=== PATIENT | female | born 1995 | race American Indian/Alaskan Native ===

== ENCOUNTER 2017-04-29 12:17 | Emergency (ER) | payer OTHER ==
[~2017-04-29] VITALS: Ht 160 cm; Wt 78.9 kg
[~2017-04-29 12:17] MED LIST: ALBU90OI INH; AMOX875 PO; ANTOXYBENA LEFTEAR; Amoxicillin500 MG PO; BIRTH CONTROL; CEPH500 PO; CODGUAEL PO; Cipro500 MG PO; Esgic Tablet1 EACH PO; Flonase 0.05% N16 GM; Keflex500 MG PO; PROMETHAZINE-D473 ML PO; Percocet 5-3251 EACH PO; Prednisone20 MG PO; Pyridium200 MG PO; RXTRAM50 PO; Sudogest30 MG PO; TRAM50 PO; Verotin-Gr Cap1 EACH; Zofran Odt4 MG SL; Zofran4 MG PO
[2017-04-29 13:28] LABS: BASOPHILS ABSOLUTE AUTO 0.02 K/mm3 (0.00-0.23); BASOPHILS PERCENT AUTO 0 % (0-2); EOSINOPHILS ABSOLUTE AUTO 0.21 K/mm3 (0.00-0.68); EOSINOPHILS PERCENT AUTO 2 % (0-6); Hematocrit 38.4 % (33.0-51.0); Hemoglobin 12.7 g/dL (11.5-16.0); IMMATURE GRAN ABSOLUTE AUTO 0.02 K/mm3 (0.00-0.10); IMMATURE GRAN PERCENT AUTO 0 % (0-1); LYMPHOCYTES PERCENT AUTO 22 % (21-46); MONOCYTES ABSOLUTE AUTO 0.74 K/mm3 (0.16-1.47); MONOCYTES PERCENT AUTO 8 % (4-13); Mean Corpuscular HGB 27.9 pg (26.0-34.0); Mean Corpuscular HGB Conc 33.1 g/dL (31.5-36.5); Mean Corpuscular Volume 84 fL (80-100); Mean Platelet Volume 9.6 fL (9.1-12.4); NEUTROPHILS ABSOLUTE AUTO 6.56 K/mm3 (1.96-9.15); NEUTROPHILS PERCENT AUTO 68 % (41-73); Platelet Count 308 K/mm3 (150-400); RDW Coefficient Variation 13.7 % (11.7-14.2); RDW Standard Deviation 42.5 fL (35.1-46.3); Red Blood Cell Count 4.56 M/mm3 (3.80-5.20); White Blood Cell Count 9.65 K/mm3 (4.00-11.30)
[2017-04-29 14:43] LABS: Alanine Aminotransfer (ALT/SGP 26 U/L (12-78); Albumin, Blood 3.2 g/dL (3.4-5.0); Albumin/Globulin Ratio 0.9 (0.8-1.8); Alk Phos 63 U/L (50-136); Anion Gap 8 mmol/L (6-16); Aspartate Aminotrans (AST/SGOT 16 U/L (12-37); Bilirubin, Total 0.2 mg/dL (0.1-1.0); Blood Urea Nitrogen 7 mg/dL (8-24); Bun/Creatinine Ratio 16.2 (12.0-20.0); CO2, Blood 21 mmol/L (21-32); Calcium, Blood 8.5 mg/dL (8.5-10.1); Chloride, Blood 109 mmol/L (98-108); Creatinine, Blood 0.43 mg/dL (0.40-1.00); Globulin, Blood 3.6 g/dL (2.2-4.0); Glomerular Filtration Rate >60 (60-); Glucose, Blood 99 mg/dL (70-99); Potassium, Blood 3.8 mmol/L (3.5-5.5); Sodium, Blood 138 mmol/L (136-145); Total Protein, Blood 6.8 g/dL (6.4-8.2)
[2017-04-29 14:56] LABS: Beta HCG, Quantitative, Serum 47944 mIU/mL (0-3)
== END 2017-04-29 15:55 | disposition home or self-care (01) ==
LOC: ER 12:17
PROVIDERS: Emergency Medicine
DX: O99.89 Other specified diseases and conditions complicating pregnancy, childbirth and the puerperium (principal); R10.30 Lower abdominal pain, unspecified; O99.511 Diseases of the respiratory system complicating pregnancy, first trimester; J45.909 Unspecified asthma, uncomplicated; O21.9 Vomiting of pregnancy, unspecified; O99.331 Smoking (tobacco) complicating pregnancy, first trimester; F17.210 Nicotine dependence, cigarettes, uncomplicated; Z3A.11 11 weeks gestation of pregnancy
CPT/HCPCS: 36415; 76801; 76817; 80053; 81000; 84702; 85025; 86900; 86901; 96360; 96361; 99284; J7030

== ENCOUNTER → 2021-01-10 | Outpatient (CLI) | payer OTHER | END | disposition home or self-care (01) | LOC: LAB SHORT 15:40 | PROVIDERS: Obstetrics & Gynecology | DX: O30.009 Twin pregnancy, unspecified number of placenta and unspecified number of amniotic sacs, unspecified trimester (principal) | CPT/HCPCS: G0123 ==

== ENCOUNTER 2021-01-18 11:27 | Emergency (ER) | payer OTHER ==
[~2021-01-18] VITALS: Ht 160 cm; Wt 88.5 kg
[2021-01-18 12:26] LABS: Source, Urine Clean Catch
[2021-01-18 12:29] LABS: Appearance, Urine Clear (Clear); Bilirubin, Urine Neg (Neg); Blood, Urine Neg (Neg); Color, Urine Yellow (P-Yellow); Glucose Qualitative, Urine Neg (Neg); Ketones, Urine Neg (Neg); Leukocyte Esterase, Urine 1+ (Neg); Nitrite, Urine Neg (Neg); Protein, Urine 1+ (Neg); Specific Gravity, Urine 1.015 (1.003-1.022); Urobilinogen, Urine NORM (Normal)
[2021-01-18 12:53] LABS: Bacteria Mod /hpf; Red Blood Cells, Urine 0-2 /hpf (0-2); Squamous Epithelial Cells Many /hpf (Few); White Blood Cells, Urine 0-2 /hpf (0-5)
[2021-01-18] MEDS ORDERED: Phenergan25 M1 PO (13:13)
== END 2021-01-18 14:24 | disposition home or self-care (01) ==
LOC: ER 11:27
PROVIDERS: Physician Assistant
DX: O99.891 Other specified diseases and conditions complicating pregnancy (principal); R10.9 Unspecified abdominal pain; M54.50 Low back pain, unspecified; O99.332 Smoking (tobacco) complicating pregnancy, second trimester; F17.210 Nicotine dependence, cigarettes, uncomplicated; Z3A.22 22 weeks gestation of pregnancy; W19.XXXA Unspecified fall, initial encounter
CPT/HCPCS: 76815; 81001; 87086; 99284-25

== ENCOUNTER 2021-01-26 05:35 | Emergency (ER) | payer OTHER ==
[~2021-01-26] VITALS: Ht 160 cm; Wt 90.7 kg
[~2021-01-26 05:35] MED LIST changes: +Phenergan25 M1 PO
[2021-01-26] MEDS ORDERED: Amoxicillin500 MG PO (06:36)
[2021-01-26] MEDS ORDERED: Roxicodone5 MG PO (06:36)
== END 2021-01-26 06:53 | disposition home or self-care (01) ==
LOC: ER 05:35
DX: K04.7 Periapical abscess without sinus (principal); K02.9 Dental caries, unspecified; F17.210 Nicotine dependence, cigarettes, uncomplicated; Z88.5 Allergy status to narcotic agent
CPT/HCPCS: 99282; A9270

== ENCOUNTER → 2021-02-24 | Outpatient (CLI) | payer OTHER ==
[~2021-02-24] MED LIST changes: +Roxicodone5 MG PO
[2021-02-24 15:45] LABS: BASOPHILS ABSOLUTE AUTO 0.04 K/mm3 (0.00-0.23); BASOPHILS PERCENT AUTO 0 % (0-2); EOSINOPHILS ABSOLUTE AUTO 0.54 K/mm3 (0.00-0.68); EOSINOPHILS PERCENT AUTO 4 % (0-6); Hematocrit 31.6 % (33.0-51.0); Hemoglobin 10.1 g/dL (11.5-16.0); IMMATURE GRAN ABSOLUTE AUTO 0.07 K/mm3 (0.00-0.10); IMMATURE GRAN PERCENT AUTO 1 % (0-1); LYMPHOCYTES ABSOLUTE AUTO 1.82 K/mm3 (0.84-5.20); LYMPHOCYTES PERCENT AUTO 14 % (21-46); MONOCYTES ABSOLUTE AUTO 0.96 K/mm3 (0.16-1.47); MONOCYTES PERCENT AUTO 8 % (4-13); Mean Corpuscular HGB 27.7 pg (26.0-34.0); Mean Corpuscular Volume 87 fL (80-100); NEUTROPHILS ABSOLUTE AUTO 9.34 K/mm3 (1.96-9.15); NEUTROPHILS PERCENT AUTO 73 % (41-73); Platelet Count 367 K/mm3 (150-400); RDW Coefficient Variation 14.5 % (11.7-14.2); RDW Standard Deviation 45.6 fL (35.1-46.3); Red Blood Cell Count 3.65 M/mm3 (3.80-5.20); White Blood Cell Count 12.77 K/mm3 (4.00-11.30)
[2021-02-25 10:15] LABS: Candida species (DNA Probe) Negative (NEGATIVE); G. vaginalis (DNA Probe) Positive (NEGATIVE); T. vaginalis (DNA Probe) Negative (NEGATIVE)
== END | disposition home or self-care (01) ==
LOC: LAB 09:54 → LAB SHORT 09:54
PROVIDERS: Obstetrics & Gynecology
DX: O23.592 Infection of other part of genital tract in pregnancy, second trimester (principal)
CPT/HCPCS: 82950; 85025; 87480; 87510; 87660

== ENCOUNTER 2021-03-09 20:24 | Emergency (ER) | payer OTHER ==
[~2021-03-09] VITALS: Ht 160 cm; Wt 90.7 kg
[2021-03-09] MEDS ORDERED: PRENATAL TABLE1 EAC2 PO (20:41)
[2021-03-09] MEDS ORDERED: Amoxicillin500 MG PO (21:05)
== END 2021-03-09 21:21 | disposition home or self-care (01) ==
LOC: ER 20:24
DX: O99.613 Diseases of the digestive system complicating pregnancy, third trimester (principal); K03.81 Cracked tooth; K04.7 Periapical abscess without sinus; Z88.5 Allergy status to narcotic agent; Z3A.32 32 weeks gestation of pregnancy
CPT/HCPCS: A9270

== ENCOUNTER 2021-05-03 15:08 | Inpatient (IN) | payer OTHER ==
[~2021-05-03] VITALS: Ht 160 cm; Wt 97.7 kg
[~2021-05-03 15:08] MED LIST changes: +PRENATAL TABLE1 EAC2 PO
[2021-05-03 23:31] LABS: Influenza A, PCR NEGATIVE (NEGATIVE); Influenza B, PCR NEGATIVE (NEGATIVE); Resp Syncytial Virus, PCR NEGATIVE (NEGATIVE); SARS-Cov-2 (COVID-19) PCR, MMC NEGATIVE (NEGATIVE)
--- NOTE | 2021-05-04 09:38 | NUR ---
05/04/21 0938 Nina Gallego REPEAT SECTION 2 VIABLE FEMALES BORN. A BORN AT 0923 AND B BORN AT 0925. CORD BLOOD FOR BABY A WAS GIVEN TO DAISY MYERS AND B GIVEN TO Jo BECK RN. CORD GASES COLLECTED AND GIVEN TO SNEHAL CLARK ON ICE. A WIEGHED 5-5 AND B WEIGHTED 6-1.
[2021-05-04 09:50] LABS: PCO2 Cord - Arterial 52.2 mmHg (40-50); pH Cord - Arterial 7.32 (7.28-7.35)
[2021-05-04 09:53] LABS: PCO2 Cord - Venous 48.9 mmHg (40-50); pH Umbilical Cord - Venous 7.35 (7.26-7.35)
[2021-05-04 09:57] LABS: PCO2 Cord - Arterial 55.9 mmHg (40-50); PO2 Cord - Arterial < 14 mmHg (16-20)
[2021-05-04 10:00] LABS: PCO2 Cord - Venous 41.7 mmHg (40-50); PO2 Cord - Venous 28.5 mmHg (28-32); pH Umbilical Cord - Venous 7.38 (7.26-7.35)
[2021-05-04 10:10] LABS: PO2 Cord - Arterial < 14 mmHg (16-20)
[2021-05-04 10:12] LABS: PO2 Cord - Venous < 14 mmHg (28-32)
--- NOTE | 2021-05-04 12:00 | NUR ---
PT REFUSING FUNDAL MASSAGE AT THIS TIME, NAS CARE DONE AND SCANT BLEEDING NOTED. SOME SHADOWING ON MEDIPORE DRESSING PRESENT, NO CLOTS. PT DECLINES FEELING ANY LEAKING OR CLOTS COME OUT
--- NOTE | 2021-05-04 15:07 | NUR ---
VICK BOOTH, SHE LIVES WITH FRIEND NAMED ANUM. THE "SPERM DONAR" VICK PEREAE IS IN [facility] AND THAT IS ILEANA RAGSDALE. SHE IS ENGAGED TO ANOTHER MAN THOR.
--- NOTE | 2021-05-04 15:08 | NUR ---
HER AUNT AND HER HAVE JOINT CUSTODY OF HER 3 YEAR OLD AND THEY LIVE IN [place], SHE GETS TO SEE HIM ONCE A MONTH OR SO. HER 7 YEAR OLD TWINS SHE DOES NOT HAVE CUSTODY OF AND LIVE WITH THE BIOLOGICAL FATHER WHO IS NOT THE SAME FATHER THESE GIRLS THAT WERE BORN TODAY.
--- NOTE | 2021-05-04 16:00 | NUR ---
Assumed care from Osbaldo Newton RN.
--- NOTE | 2021-05-04 17:05 | NUR ---
Pt sitting in bed, opening gifts and speaking with people at window. Will call when finished.
[2021-05-05 05:36] LABS: BASOPHILS ABSOLUTE AUTO 0.04 K/mm3 (0.00-0.23); BASOPHILS PERCENT AUTO 0 % (0-2); EOSINOPHILS ABSOLUTE AUTO 0.08 K/mm3 (0.00-0.68); EOSINOPHILS PERCENT AUTO 0 % (0-6); Hematocrit 24.6 % (33.0-51.0); Hemoglobin 7.5 g/dL (11.5-16.0); IMMATURE GRAN ABSOLUTE AUTO 0.14 K/mm3 (0.00-0.10); IMMATURE GRAN PERCENT AUTO 1 % (0-1); LYMPHOCYTES ABSOLUTE AUTO 1.48 K/mm3 (0.84-5.20); LYMPHOCYTES PERCENT AUTO 7 % (21-46); MONOCYTES PERCENT AUTO 9 % (4-13); Mean Corpuscular HGB 24.5 pg (26.0-34.0); Mean Corpuscular HGB Conc 30.5 g/dL (31.5-36.5); Mean Corpuscular Volume 80 fL (80-100); Mean Platelet Volume 10.4 fL (9.1-12.4); NEUTROPHILS ABSOLUTE AUTO 17.36 K/mm3 (1.96-9.15); NEUTROPHILS PERCENT AUTO 83 % (41-73); Platelet Count 325 K/mm3 (150-400); RDW Coefficient Variation 15.7 % (11.7-14.2); RDW Standard Deviation 45.7 fL (35.1-46.3); Red Blood Cell Count 3.06 M/mm3 (3.80-5.20)
--- NOTE | 2021-05-05 08:21 | NUR ---
Pt lying right lateral, bp cuff on upper arm, will recheck when pt awake and repositioned.
--- NOTE | 2021-05-05 10:18 | NUR ---
Lizzette Holland, child welfare personal banking representative, here to speak with pt.
--- NOTE | 2021-05-05 10:35 | NUR ---
Child welfare reports will be back this afternoon or tomorrow with plan for discharge.
--- NOTE | 2021-05-05 10:45 | NUR ---
Pt medicated after child welfare left. Reported she would like to get up soon. RN recommended she wait until the medication has kicked in prior to getting up. Pt agreed and asked if RN would help her roll to her right side. RN asked if she would like to be woken up if asleep and pt stated no. Will monitor for pt to wake and assist to get up when ready.
--- NOTE | 2021-05-05 12:00 | NUR ---
hospital aides and assistants teacher delivered lunch tray and reports that pt was still asleep.
--- NOTE | 2021-05-05 13:35 | NUR ---
Pt still sleeping soundly.
--- NOTE | 2021-05-05 14:20 | NUR ---
Pt remains asleep right lateral.
--- NOTE | 2021-05-05 18:33 | NUR ---
Dr. Rodriguez updated , pt visiting babies via w.c in the nursery, pale and tires easily when up. CBC ordered for am
[2021-05-06 05:32] LABS: BASOPHILS ABSOLUTE AUTO 0.03 K/mm3 (0.00-0.23); BASOPHILS PERCENT AUTO 0 % (0-2); EOSINOPHILS ABSOLUTE AUTO 0.16 K/mm3 (0.00-0.68); EOSINOPHILS PERCENT AUTO 1 % (0-6); IMMATURE GRAN PERCENT AUTO 1 % (0-1); LYMPHOCYTES ABSOLUTE AUTO 1.85 K/mm3 (0.84-5.20); LYMPHOCYTES PERCENT AUTO 12 % (21-46); MONOCYTES ABSOLUTE AUTO 1.25 K/mm3 (0.16-1.47); MONOCYTES PERCENT AUTO 8 % (4-13); Mean Corpuscular HGB 24.7 pg (26.0-34.0); Mean Corpuscular HGB Conc 30.4 g/dL (31.5-36.5); Mean Corpuscular Volume 81 fL (80-100); Mean Platelet Volume 10.4 fL (9.1-12.4); NEUTROPHILS ABSOLUTE AUTO 11.87 K/mm3 (1.96-9.15); NEUTROPHILS PERCENT AUTO 78 % (41-73); Platelet Count 339 K/mm3 (150-400); RDW Coefficient Variation 15.9 % (11.7-14.2); RDW Standard Deviation 46.5 fL (35.1-46.3); Red Blood Cell Count 1.94 M/mm3 (3.80-5.20); White Blood Cell Count 15.26 K/mm3 (4.00-11.30)
[2021-05-06 06:08] LABS: Hematocrit 15.8 % (33.0-51.0); Hemoglobin 4.8 g/dL (11.5-16.0)
--- NOTE | 2021-05-06 09:41 | NUR ---
BP 85/48. PT RECEIVING BLOOD TRANSFUSION. PT VERBALIZES SHE "FEELS FINE" DENIES LIGHTHEADEDNESS, DIZZINESS. PT IS LAYING DOWN ON HER RIGHT SIDE WITH THE BP CUFF ON HER LEFT ARM (THE UPER ARM). WILL CONTINUE TO MONITOR. ANTICIPATING BP WILL INCREASE AFTER BLOOD TRANSFUSIONS COMPLETED.
[2021-05-06 15:04] LABS: BASOPHILS ABSOLUTE AUTO 0.04 K/mm3 (0.00-0.23); BASOPHILS PERCENT AUTO 0 % (0-2); EOSINOPHILS ABSOLUTE AUTO 0.28 K/mm3 (0.00-0.68); EOSINOPHILS PERCENT AUTO 2 % (0-6); Hematocrit 22.7 % (33.0-51.0); Hemoglobin 7.1 g/dL (11.5-16.0); IMMATURE GRAN ABSOLUTE AUTO 0.11 K/mm3 (0.00-0.10); IMMATURE GRAN PERCENT AUTO 1 % (0-1); LYMPHOCYTES ABSOLUTE AUTO 2.24 K/mm3 (0.84-5.20); LYMPHOCYTES PERCENT AUTO 16 % (21-46); MONOCYTES ABSOLUTE AUTO 1.36 K/mm3 (0.16-1.47); MONOCYTES PERCENT AUTO 10 % (4-13); Mean Corpuscular HGB 24.8 pg (26.0-34.0); Mean Corpuscular HGB Conc 31.3 g/dL (31.5-36.5); Mean Corpuscular Volume 79 fL (80-100); Mean Platelet Volume 10.3 fL (9.1-12.4); NEUTROPHILS PERCENT AUTO 71 % (41-73); Platelet Count 298 K/mm3 (150-400); RDW Standard Deviation 45.9 fL (35.1-46.3); Red Blood Cell Count 2.86 M/mm3 (3.80-5.20); White Blood Cell Count 13.93 K/mm3 (4.00-11.30)
--- NOTE | 2021-05-07 07:36 | NUR ---
breakfast at bedside, pt is sleeping, didnt sleep much during the night, pt resp rate is 20 will continue to let pt sleep a little longer
--- NOTE | 2021-05-07 08:50 | NUR ---
palpated lightly pt lt side of abd and rt side, reports lt side has a sharper pain to it, unsure if it hurts less in other positions, has moved from her side she reports, with light palpation it hurts a little more on the lt, but doesnt feel firm to palpate on any part of her able, feel like she is a little bloated with gas, pt reports she it passing lots of gas. offered simethacone and pnv, pt declines, pt declines pain meds, did give a number cause she is unsure of her pain since she hasnt moved, pt encouraged to let rn know if she needs pain medications pt denies dizzy or lightheaded or ringing in ears when she gets up to use the bathroom.
[2021-05-07 08:57] LABS: Hematocrit 21.9 % (33.0-51.0); Hemoglobin 6.9 g/dL (11.5-16.0); Mean Corpuscular HGB 25.5 pg (26.0-34.0); Mean Corpuscular HGB Conc 31.5 g/dL (31.5-36.5); Mean Corpuscular Volume 81 fL (80-100); Mean Platelet Volume 9.8 fL (9.1-12.4); Platelet Count 321 K/mm3 (150-400); RDW Coefficient Variation 15.9 % (11.7-14.2); RDW Standard Deviation 46.4 fL (35.1-46.3); Red Blood Cell Count 2.71 M/mm3 (3.80-5.20); White Blood Cell Count 12.77 K/mm3 (4.00-11.30)
--- NOTE | 2021-05-07 11:05 | NUR ---
lew has been out of the room since around 929, continues to not be here and pt is sleeping soundly in bed, have checked on her and the babies twice and they are all sleeping,
--- NOTE | 2021-05-07 11:26 | NUR ---
woke brittany up about 15 minutes ago to feed baby A, she is due and could hear her getting fussy. brittany was sound asleep, woke up saying she is hurting, offered pain meds, she accepted, went and got pain medication, came back, brittany is back asleep, had to wake her up to give her pain meds, reports pain 7/10, gave her juice and crackers, got baby A bottle ready and gave her the baby, not sure she wanted to feed her baby, i havent seen brittany do any baby care on my shift, just the gentleman she refers to as her hubby/honey. her gentleman izabella/nelida hasnt returned yet. cps is due to be here at 1200, there is concern with who is going to care for these babies, brittany hasnt shown much interest in doing baby care, i was not here during pm shift so i cant say how she did for the pm shift last night.
--- NOTE | 2021-05-07 11:58 | NUR ---
pt was done feeding baby, never called rn, just switched babies, now is feeding baby b,
[2021-05-07] MEDS ORDERED: ONDA4ODT MM (13:46)
[2021-05-07] MEDS ORDERED: OXAYDO5 M1 PO (13:47)
[2021-05-07] MEDS ORDERED: IBUP800 PO (13:47)
[2021-05-07] MEDS ORDERED: DOCU100 PO (13:47)
[2021-05-07] MEDS ORDERED: FERSU300 PO (13:47)
[2021-05-07] MEDS ORDERED: ACETAMINOPHEN500 M2 PO (13:48)
--- NOTE | 2021-05-07 14:21 | NUR ---
DID DC TEACHING FOR MOM AND 2 BABIES, MOM VERBALIZED UNDERSTANDING ON APPOINTMENTS FOR HER WITH DR RESENDIZ AND DR SAUCEDA FOR THE BABIES, COMING BACK ON SUNDAY FOR PPFU APPT. PT LAYED ON HER SIDE WITH HER EYES CLOSED MOST OF THE DC TEACHING AND WOULD NOD OR OPEN HER EYES, NOT SURE HOW MUCH SHE HEARD OR LISTENED TO. SHE SLEPT ALL DAY. HER VITAL SIGNS WERE STABLE, SHE DENIES BEING DIZZY OR LIGHT HEADED WHEN UP. GAVE PT HER SCRIPTS, ENCOURAGE TO TAKE THEM, ALSO ADDED SHE COULD TAKE TYLENOL 1000MG OVER THE COUNTER SHE HAS BEEN TAKING HERE. PT VERALIZED UNDERSTANDING
--- NOTE | 2021-05-07 14:50 | NUR ---
DC HOME WITH LAUREN MAMADOU (ANUM ) AND BURAK CAME TO GET PATIENT AND BABIES. PT HEADING TO [facility] TO FILL SCRIPTS, ENCOURAGED TO FEED BABIES WHILE GETTING SCRIPTS FILLED BEFORE HEADING TO [facility]. BABIES WILL BE DUE TO FEED AT [id number] SHE VERBALIZED UNDERSTANDING. WHEN DID DC TEACHING, SHE REPORTED LAUREN WAS ON THE WAY, BUT THEN THEY SHOWED UP JUST AFTER DONE WITH TEACHING SO WE HURRIED TO GET HER STUFF DONE AND THE ROOM PACKED UP. PT WATCHED RN AND OBT PACK UP HER STUFF.
--- NOTE | 2021-05-09 09:24 | NUR ---
PPFU. PT NOT ABLE TO COME TO PPFU BECAUSE SHE HAS BEEN ADMITTED TO [facility] AND IS HAVING SURGERY FOR BLEEDING. PT STATES SHE WILL CALL ME BY TOMORROW AND RESCHEDULE THE TWINS F/U APPOINTMENT. TWINS ARE IN THE CARE OF "ANUM", SHE IS UNSURE OF SHE IS GOING TO BE BRINGING THEM IN, PT DID NOT GIVE RN ANUM'S PHONE NUMBER SHE SAYS SHE DOES NOT HAVE IT W/ HER. PT STATES SHE WILL CALL RN AFTER SHE TALKS W/ ANUM TO GET APPOINTMENTS RESCHEUDLED AND WILL ALSO GIVE ANUM RN'S PHONE NUMBER. RN STATES SHE WILL CALL HER AGAIN AT NOON 05/10 IF SHE HAS NOT CALLED BACK BY THEM. PT VERBALIZED UNDERSTANDING.
--- NOTE | 2021-05-10 14:15 | NUR ---
[facility]PS NOTIFED OF PT NOT BRINGING IN TWINS FOR PPFU.
== END 2021-05-07 14:50 | disposition home or self-care (01) | DRG 787 ==
LOC: OBS 15:08 → BC 15:09 → OBS 19:34 → BC 19:37
PROVIDERS: Family Medicine; Obstetrics & Gynecology; ADMIT Obstetrics & Gynecology
PROC: 30233N1 Transfusion of Nonautologous Red Blood Cells into Peripheral Vein, Percutaneous Approach (ICD-10-PCS; 2021-05-04)
PROC: 10D00Z1 Extraction of Products of Conception, Low, Open Approach (ICD-10-PCS; principal; 2021-05-04 15:15)
DX: O14.04 Mild to moderate pre-eclampsia, complicating childbirth (principal); D62 Acute posthemorrhagic anemia; Z3A.37 37 weeks gestation of pregnancy; Z37.2 Twins, both liveborn; Z20.822 Contact with and (suspected) exposure to COVID-19; O30.043 Twin pregnancy, dichorionic/diamniotic, third trimester; O32.1XX2 Maternal care for breech presentation, fetus 2; O34.211 Maternal care for low transverse scar from previous cesarean delivery; O75.89 Other specified complications of labor and delivery; D64.9 Anemia, unspecified; O99.02 Anemia complicating childbirth; O99.334 Smoking (tobacco) complicating childbirth; F17.210 Nicotine dependence, cigarettes, uncomplicated; F15.10 Other stimulant abuse, uncomplicated; Z91.14 Patient's other noncompliance with medication regimen; Z88.5 Allergy status to narcotic agent; Z79.82 Long term (current) use of aspirin; Z79.899 Other long term (current) drug therapy
CPT/HCPCS: 0241U; 36415; 36430; 59025; 82803; 85025; 85027; 86850; 86900; 86901; 86923; 88307; A9270; J0690; J1885; J2250; J2270; J2405; J2550; J2590; J2765; J3010; J7030; J7120; P9016

== ENCOUNTER 2022-04-14 06:11 | Inpatient (IN) | payer OTHER ==
[~2022-04-14] VITALS: Ht 160 cm; Wt 79.4 kg
[~2022-04-14 06:11] MED LIST changes: +ACETAMINOPHEN500 M2 PO; +DOCU100 PO; +FERSU300 PO; +IBUP800 PO; +ONDA4ODT MM; +OXAYDO5 M1 PO
[2022-04-14 07:27] LABS: BASOPHILS ABSOLUTE AUTO 0.03 K/mm3 (0.00-0.23); BASOPHILS PERCENT AUTO 0 % (0-2); EOSINOPHILS ABSOLUTE AUTO 0.23 K/mm3 (0.00-0.68); EOSINOPHILS PERCENT AUTO 2 % (0-6); Hematocrit 45.5 % (33.0-51.0); IMMATURE GRAN ABSOLUTE AUTO 0.04 K/mm3 (0.00-0.10); IMMATURE GRAN PERCENT AUTO 0 % (0-1); LYMPHOCYTES ABSOLUTE AUTO 1.77 K/mm3 (0.84-5.20); LYMPHOCYTES PERCENT AUTO 14 % (21-46); MONOCYTES ABSOLUTE AUTO 0.87 K/mm3 (0.16-1.47); MONOCYTES PERCENT AUTO 7 % (4-13); Mean Corpuscular HGB 26.8 pg (26.0-34.0); Mean Corpuscular Volume 81 fL (80-100); Mean Platelet Volume 9.8 fL (9.1-12.4); NEUTROPHILS ABSOLUTE AUTO 9.96 K/mm3 (1.96-9.15); NEUTROPHILS PERCENT AUTO 77 % (41-73); Platelet Count 460 K/mm3 (150-400); RDW Coefficient Variation 14.1 % (11.7-14.2); RDW Standard Deviation 41.3 fL (35.1-46.3)
[2022-04-14 07:47] LABS: Albumin, Blood 3.7 g/dL (3.4-5.0); Albumin/Globulin Ratio 0.9 (0.8-1.8); Bilirubin, Total 0.5 mg/dL (0.1-1.0); Calcium, Blood 9.2 mg/dL (8.5-10.1); Creatinine, Blood 0.68 mg/dL (0.40-1.00); Globulin, Blood 4.2 g/dL (2.2-4.0); Potassium, Blood 4.1 mmol/L (3.5-5.5); Total Protein, Blood 7.9 g/dL (6.4-8.2)
--- NOTE | 2022-04-14 15:09 | NUR ---
ADMISSION: REPORT RECEIVED FROM ED RN. PT TO UNIT AT ABOUT 1220. PT IS DROWSY, AWAKENS TO VOICE AND ANSWERS QUESTIONS APPROPRIATELY. PT ASKED TO LAY ON BACK TO TAKE BLOOD PRESSURE, PT REFUSED AND REPORTS TOO PAINFUL AT ABD. PT ALSO REPORTS NAUSEA. MEDICATED PER EMAR AND FLUIDS STARTED. DR. CUEVAS IS AWARE OF ARRIVAL. PT ORIENTED TO ROOM, CALL LIGHT IN REACH. WILL CTM
--- NOTE | 2022-04-14 15:58 | NUR ---
DR. CUEVAS IN ROOM AT ABOUT 1330.
--- NOTE | 2022-04-14 15:59 | NUR ---
NGT ATTEMPT: THIS RN AND DR. CUEVAS IN ROOM AT ABOUT 1400. THIS RN GAVE 1MG ATIVAN IV AND EXPLAINED PROCEEDURE TO PT. DR. CUEVAS HAD PT SIT UP AND GAVE LIDOCAINE THROUGH L NARE. TUBE ADVANCED BY DR. CUEVAS AND IN PLACE FOR A FEW SECONDS, BEFORE PT PULLED OUT THE TUBE AGGRESSIVLY STATING SHE DID NOT WANT IT. DR. CUEVAS LEFT ROOM, PT CALMED DOWN AND LAID BACK DOWN IN BED. PT DENIED ANY NEEDS. CALL LIGHT IN REACH, WILL CTM.
--- NOTE | 2022-04-14 17:05 | NUR ---
SUMMARY: NO ACUTE CHANGE SINCE ATTEMPTED NGT. PT HAS RESTED, EASILY AWAKENED, VSS. PT HAS REQUESTED WATER, BUT UNABLE TO GIVE SINCE PT STILL NPO. MOUTH SWABS OFFERED. PT HAS HAD INTERMITTANT NAUSEA/PAIN OTHERWISE HAS RESTED. NO ACUTE CONCERNS, BED ALARM ON FOR SAFETY.
[2022-04-15 04:08] LABS: Hematocrit 37.2 % (33.0-51.0); Hemoglobin 12.2 g/dL (11.5-16.0); Mean Corpuscular HGB Conc 32.8 g/dL (31.5-36.5); Mean Corpuscular Volume 82 fL (80-100); Mean Platelet Volume 9.7 fL (9.1-12.4); Platelet Count 326 K/mm3 (150-400); RDW Coefficient Variation 14.2 % (11.7-14.2); RDW Standard Deviation 42.5 fL (35.1-46.3); Red Blood Cell Count 4.52 M/mm3 (3.80-5.20); White Blood Cell Count 7.23 K/mm3 (4.00-11.30)
[2022-04-15 04:27] LABS: Bun/Creatinine Ratio 23.9 (12.0-20.0); Calcium, Blood 7.7 mg/dL (8.5-10.1); Creatinine, Blood 0.63 mg/dL (0.40-1.00); Potassium, Blood 3.2 mmol/L (3.5-5.5)
--- NOTE | 2022-04-15 05:45 | NUR ---
CAKE MIXER SUMMARY PT AAOX4 AND INDEPENDENT IN ROOM. NAUSEAS WITH ABD PAIN AT START OF SHIFT HOWEVER PT REPORTED HAVING SOME LIQUID BM'S THAT HELPED ALLEVIATE SOME OF THE PAIN. PT ALSO REPORTED THAT HER APPETITE RETURNED FOR THE FIRST TIME IN 2 DAYS. PT REMINDED OF NPO STATUS. MEDICATED FOR PAIN X1 WITH FENTANYL 50 MCG IV. VSS, WILL CONTINUE TO MONITOR.
--- NOTE | 2022-04-15 15:03 | NUR ---
PATIENTS RESULTS FROM SMALL BOWEL FOLLOW THROUGH TEST CAME BACK. THIS NURSE NOTIFIED DR. CUEVAS OF RESULTS BEING AVAILABLE TO VIEW. DR. CUEVAS STATED SHE CAN START A CLEAR LIQUID DIET TONIGHT, AND IF THERE WERE NO COMPLICATIONS DURING THE NIGHT SHE COULD HAVE HER DIET ADVANCED IN THE MORNING THEN POSSIBLY DISCHARGE TOMORROW IF IT WAS APPROPRIATE. THIS NURSE THEN NOTIFIED PATIENT OF DR. PABON PLAN. AFTER FINISHING EXPLAINING THE PLAN TO THE PATIENT SHE THEN REQUESTED FOR AMA FORMS AND STATED "I CAN BE MISERABLE AT HOME AND SLEEP IN MY OWN BED". THIS NURSE EDUCATED PATIENT ABOUT THE RISKS OF LEAVING WHICH INCLUDED FURTHER OBSTRUCTION, INCREASE IN NAUSEA/VOMITING, AND PAIN. THEN STATED THE BENEFITS WHICH WOULD BE TO GO HOME AND TO BE ABLE TO EAT. PATIENT VERBALIZED UNDERSTANDING OF RISKS AND BENEFITS WITH NO FURTHER QUESTIONS. IV WAS TAKEN OUT AND WNL. SHE SIGNED THE AMA FORM, GATHERED HER ITEMS IN THE ROOM, AND WALKED OUT TO THE HOSPITAL EXIT.
== END 2022-04-15 15:19 | disposition left against medical advice (07) | DRG 390 ==
LOC: ER 06:11 → SURS 11:11
PROVIDERS: Emergency Medicine; Nurse Practitioner Acute Care; ADMIT Internal Medicine
DX: K56.600 Partial intestinal obstruction, unspecified as to cause (principal); E66.3 Overweight; J45.909 Unspecified asthma, uncomplicated; D72.829 Elevated white blood cell count, unspecified; Z68.31 Body mass index [BMI] 31.0-31.9, adult; Z28.21 Immunization not carried out because of patient refusal; Z90.49 Acquired absence of other specified parts of digestive tract; Z98.891 History of uterine scar from previous surgery; Z88.6 Allergy status to analgesic agent
CPT/HCPCS: 36415; 74177; 74250; 76700; 80048; 80053; 83690; 84703; 85025; 85027; 94760; 96374-59; 96375; 96376; 99285-25; J1885; J2001; J2060; J2405; J3010; J3480; J7030; J7050; Q9967

== ENCOUNTER → 2023-01-18 | Outpatient (CLI) | payer OTHER ==
[2023-01-19 11:07] LABS: RPR Reactive (Nonreactive)
[2023-01-19 11:08] LABS: RPR TITER 1:16
== END | disposition home or self-care (01) ==
LOC: LAB SHORT 13:02 → LAB 13:02
PROVIDERS: Obstetrics & Gynecology
DX: A53.9 Syphilis, unspecified (principal)
CPT/HCPCS: 86592; 86593; 86780

== ENCOUNTER → 2023-04-03 | Outpatient (CLI) | payer OTHER | END | disposition home or self-care (01) | LOC: LAB SHORT 11:34 → LAB 11:34 | DX: H60.391 Other infective otitis externa, right ear (principal) | CPT/HCPCS: 87070; 87077; 87186; 87205 ==

== ENCOUNTER 2024-06-27 20:20 | Emergency (ER) | payer OTHER | END 2024-06-27 21:24 | disposition left against medical advice (07) | LOC: ER 20:20 | DX: Z53.21 Procedure and treatment not carried out due to patient leaving prior to being seen by health care provider (principal) ==

== ENCOUNTER 2024-09-16 18:22 | Emergency (ER) | payer OTHER ==
[~2024-09-16] VITALS: Ht 160 cm; Wt 90.7 kg
[2024-09-16 18:35] VITALS: BP 109/72
[2024-09-16] MEDS ORDERED: FentaNYL Citrate 50 MCG/ML 2 ML Injection IV ONE (18:35)
[2024-09-16] MEDS ORDERED: FentaNYL Citrate 50 MCG/ML 2 ML Injection IM ONE (18:45)
[2024-09-16 19:47] LABS: BASOPHILS ABSOLUTE AUTO 0.02 K/mm3 (0.00-0.23); BASOPHILS PERCENT AUTO 0 % (0-2); EOSINOPHILS ABSOLUTE AUTO 0.28 K/mm3 (0.00-0.68); EOSINOPHILS PERCENT AUTO 3 % (0-6); Hematocrit 37.2 % (33.0-51.0); Hemoglobin 11.8 g/dL (11.5-16.0); IMMATURE GRAN ABSOLUTE AUTO 0.11 K/mm3 (0.00-0.10); IMMATURE GRAN PERCENT AUTO 1 % (0-1); LYMPHOCYTES ABSOLUTE AUTO 2.09 K/mm3 (0.84-5.20); LYMPHOCYTES PERCENT AUTO 23 % (21-46); MONOCYTES ABSOLUTE AUTO 0.72 K/mm3 (0.16-1.47); MONOCYTES PERCENT AUTO 8 % (4-13); Mean Corpuscular HGB Conc 31.7 g/dL (31.5-36.5); Mean Corpuscular Volume 82 fL (80-100); NEUTROPHILS ABSOLUTE AUTO 5.72 K/mm3 (1.96-9.15); NEUTROPHILS PERCENT AUTO 64 % (41-73); NRBC ABSOLUTE 0.00 K/mm3 (0.00-0.02); NRBC Auto 0.0 /100 WBC (0.0-0.2); Platelet Count 360 K/mm3 (150-400); RDW Coefficient Variation 14.2 % (11.7-14.2); RDW Standard Deviation 42.5 fL (35.1-46.3)
[2024-09-16] MEDS ORDERED: Morphine Sulfate 4 MG/1 ML Injection IV ONE (19:55)
[2024-09-16 20:22] LABS: Prothrombin Time Results 10.8 Sec (9.7-11.5)
[2024-09-16] MEDS ORDERED: HYDROmorphone HCl/Pf 1MG SYR IV ONE (20:30)
[2024-09-16 20:32] LABS: Alanine Aminotransfer (ALT/SGP 21 U/L (12-78); Albumin, Blood 3.6 g/dL (3.4-5.0); Albumin/Globulin Ratio 0.9 (0.8-1.8); Anion Gap 8 mmol/L (3-11); Aspartate Aminotrans (AST/SGOT 20 U/L (12-37); Beta HCG, Quantitative, Serum <1 mIU/mL (0-3); Bilirubin, Total 0.2 mg/dL (0.1-1.0); Blood Urea Nitrogen 13 mg/dL (8-24); CO2, Blood 25 mmol/L (21-32); Calcium, Blood 9.1 mg/dL (8.5-10.1); Chloride, Blood 111 mmol/L (98-108); Creatinine, Blood 0.80 mg/dL (0.40-1.00); Ethanol (Alcohol), Blood, Med <3 mg/dL; Globulin, Blood 3.8 g/dL (2.2-4.0); Glucose, Blood 102 mg/dL (70-99); Potassium, Blood 3.9 mmol/L (3.5-5.5); Sodium, Blood 140 mmol/L (136-145); Total Protein, Blood 7.4 g/dL (6.4-8.2)
[2024-09-16] MEDS ORDERED: OXYC5 PO (21:38)
[2024-09-16] MEDS ORDERED: RX Prepack 6 Tabs Oxycodone 5mg UD ONE (21:40)
== END 2024-09-16 22:02 | disposition home or self-care (01) ==
LOC: ER 18:22
PROVIDERS: Student in an Organized Health Care Education/Training Program
DX: S22.009A Unspecified fracture of unspecified thoracic vertebra, initial encounter for closed fracture (principal); Z88.5 Allergy status to narcotic agent; M79.672 Pain in left foot; V89.2XXA Person injured in unspecified motor-vehicle accident, traffic, initial encounter
CPT/HCPCS: 70450; 71260; 72125; 74177; 80053; 80320; 82947; 83690; 84702; 85025; 85610; 86850; 86900; 86901; 93005; 93010; 96374-59; 96375; 99284-25; A9270; J1171; J2270; J3010; Q9967

== ENCOUNTER 2025-02-08 12:32 | Emergency (ER) | payer OTHER ==
[~2025-02-08] VITALS: Ht 160 cm; Wt 90.7 kg
[~2025-02-08 12:32] MED LIST changes: +OXYC5 PO
[2025-02-08 13:05] VITALS: BP 131/102
[2025-02-08 13:14] LABS: BASOPHILS ABSOLUTE AUTO 0.06 K/mm3 (0.00-0.23); BASOPHILS PERCENT AUTO 1 % (0-2); EOSINOPHILS ABSOLUTE AUTO 0.35 K/mm3 (0.00-0.68); EOSINOPHILS PERCENT AUTO 4 % (0-6); Hematocrit 41.0 % (33.0-51.0); Hemoglobin 13.4 g/dL (11.5-16.0); IMMATURE GRAN ABSOLUTE AUTO 0.07 K/mm3 (0.00-0.10); IMMATURE GRAN PERCENT AUTO 1 % (0-1); LYMPHOCYTES ABSOLUTE AUTO 1.82 K/mm3 (0.84-5.20); LYMPHOCYTES PERCENT AUTO 19 % (21-46); MONOCYTES ABSOLUTE AUTO 0.94 K/mm3 (0.16-1.47); MONOCYTES PERCENT AUTO 10 % (4-13); Mean Corpuscular HGB Conc 32.7 g/dL (31.5-36.5); Mean Corpuscular Volume 81 fL (80-100); NEUTROPHILS ABSOLUTE AUTO 6.28 K/mm3 (1.96-9.15); NEUTROPHILS PERCENT AUTO 66 % (41-73); NRBC ABSOLUTE 0.02 K/mm3 (0.00-0.02); NRBC Auto 0.2 /100 WBC (0.0-0.2); RDW Coefficient Variation 14.1 % (11.7-14.2); RDW Standard Deviation 41.3 fL (35.1-46.3)
[2025-02-08 13:22] LABS: Alanine Aminotransfer (ALT/SGP 32.0 U/L (12-78); Albumin, Blood 3.6 g/dL (3.4-5.0); Albumin/Globulin Ratio 1.0 (0.8-1.8); Anion Gap 10.0 mmol/L (3-11); Aspartate Aminotrans (AST/SGOT 27.0 U/L (12-37); Bilirubin, Total 0.3 mg/dL (0.1-1.0); Blood Urea Nitrogen 10.0 mg/dL (8-24); CO2, Blood 20.0 mmol/L (21-32); Calcium, Blood 8.8 mg/dL (8.5-10.1); Chloride, Blood 109.0 mmol/L (98-108); Creatinine, Blood 0.53 mg/dL (0.40-1.00); Globulin, Blood 3.6 g/dL (2.2-4.0); Glucose, Blood 99.0 mg/dL (70-99); Potassium, Blood 4.3 mmol/L (3.5-5.5); Sodium, Blood 135.0 mmol/L (136-145); Total Protein, Blood 7.2 g/dL (6.4-8.2)
== END 2025-02-08 14:08 | disposition left against medical advice (07) ==
LOC: ER 12:32
PROVIDERS: Physician Assistant
DX: O20.9 Hemorrhage in early pregnancy, unspecified (principal); O99.891 Other specified diseases and conditions complicating pregnancy; R25.2 Cramp and spasm; J45.909 Unspecified asthma, uncomplicated; F17.210 Nicotine dependence, cigarettes, uncomplicated; Z88.5 Allergy status to narcotic agent
CPT/HCPCS: 36415; 80053; 84702; 85025; 99281

== ENCOUNTER → 2025-02-11 | Outpatient (CLI) | payer OTHER ==
[~2025-02-11] MED LIST changes: +ACET500 PO
[2025-02-11 16:22] LABS: U Amphetamine Screen DETECTED; U Barbiturate Screen Not Detected; U Benzodiazapine Screen Not Detected; U Buprenorphine Screen Not Detected; U Cannabinoids Screen Not Detected; U Cocaine Screen Not Detected; U Methadone Screen Not Detected; U Methamphetamine Screen DETECTED; U Opiates Screen Not Detected; U Oxycodone Screen Not Detected; U Phencyclidine Screen Not Detected
== END | disposition home or self-care (01) ==
LOC: LAB 13:35 → LAB SHORT 13:35
PROVIDERS: Obstetrics & Gynecology
DX: F19.10 Other psychoactive substance abuse, uncomplicated (principal)

== ENCOUNTER 2025-02-12 20:16 | Emergency (ER) | payer OTHER ==
[~2025-02-12] VITALS: Ht 162.6 cm; Wt 90.7 kg
[~2025-02-12 20:16] MED LIST changes: -ACET500 PO
[2025-02-12] MEDS ORDERED: Morphine Sulfate 4 MG/1 ML Injection IV ONE (20:40)
[2025-02-12] MEDS ORDERED: Morphine Sulfate 4 MG/1 ML Injection IM ONE (20:50)
[2025-02-12 21:18] LABS: BASOPHILS ABSOLUTE AUTO 0.04 K/mm3 (0.00-0.23); BASOPHILS PERCENT AUTO 0 % (0-2); EOSINOPHILS ABSOLUTE AUTO 0.31 K/mm3 (0.00-0.68); EOSINOPHILS PERCENT AUTO 2 % (0-6); Hematocrit 36.5 % (33.0-51.0); Hemoglobin 11.7 g/dL (11.5-16.0); IMMATURE GRAN ABSOLUTE AUTO 0.10 K/mm3 (0.00-0.10); IMMATURE GRAN PERCENT AUTO 1 % (0-1); LYMPHOCYTES ABSOLUTE AUTO 1.64 K/mm3 (0.84-5.20); LYMPHOCYTES PERCENT AUTO 8 % (21-46); MONOCYTES ABSOLUTE AUTO 1.34 K/mm3 (0.16-1.47); MONOCYTES PERCENT AUTO 6 % (4-13); Mean Corpuscular HGB Conc 32.1 g/dL (31.5-36.5); Mean Corpuscular Volume 82 fL (80-100); NEUTROPHILS ABSOLUTE AUTO 17.87 K/mm3 (1.96-9.15); NEUTROPHILS PERCENT AUTO 84 % (41-73); NRBC ABSOLUTE 0.00 K/mm3 (0.00-0.02); NRBC Auto 0.0 /100 WBC (0.0-0.2); Platelet Count 445 K/mm3 (150-400); RDW Coefficient Variation 13.9 % (11.7-14.2); RDW Standard Deviation 41.1 fL (35.1-46.3)
[2025-02-12] MEDS ORDERED: Ondansetron HCl 2 MG / ML 2ML Vial IV ONE (21:35)
[2025-02-12] MEDS ORDERED: NS 1,000 ML IV SCH (21:50)
[2025-02-12 22:00] LABS: Alanine Aminotransfer (ALT/SGP 35.0 U/L (12-78); Albumin, Blood 3.5 g/dL (3.4-5.0); Albumin/Globulin Ratio 0.9 (0.8-1.8); Anion Gap 11.0 mmol/L (3-11); Aspartate Aminotrans (AST/SGOT 23.0 U/L (12-37); Beta HCG, Quantitative, Serum 1424.0 mIU/mL (0-3); Bilirubin, Total 0.2 mg/dL (0.1-1.0); Blood Urea Nitrogen 17.0 mg/dL (8-24); CO2, Blood 22.0 mmol/L (21-32); Calcium, Blood 8.9 mg/dL (8.5-10.1); Chloride, Blood 108.0 mmol/L (98-108); Creatinine, Blood 0.68 mg/dL (0.40-1.00); Globulin, Blood 3.9 g/dL (2.2-4.0); Glucose, Blood 112.0 mg/dL (70-99); Potassium, Blood 3.8 mmol/L (3.5-5.5); Sodium, Blood 137.0 mmol/L (136-145); Total Protein, Blood 7.4 g/dL (6.4-8.2)
[2025-02-12] MEDS ORDERED: HYDROmorphone HCl/Pf 1MG SYR IV ONE (22:05)
[2025-02-13] MEDS ORDERED: ACET500 PO (00:14)
[2025-02-13 00:31] VITALS: BP 107/60
== END 2025-02-13 00:32 | disposition home or self-care (01) ==
LOC: ER 20:16
PROVIDERS: Physician Assistant
DX: O20.0 Threatened abortion (principal); Z3A.10 10 weeks gestation of pregnancy; Z88.5 Allergy status to narcotic agent; J45.909 Unspecified asthma, uncomplicated; F17.210 Nicotine dependence, cigarettes, uncomplicated
CPT/HCPCS: 36415; 76801; 80053; 83605; 84702; 85025; 86900; 86901; 87040; 96361; 96372-59; 96374; 96375; 99284-25; J1171; J2270; J2405; J7030

== ENCOUNTER 2025-02-13 08:42 | Emergency (ER) | payer OTHER ==
[~2025-02-13] VITALS: Ht 160 cm; Wt 90.7 kg
[~2025-02-13 08:42] MED LIST changes: +ACET500 PO
[2025-02-13] MEDS ORDERED: NS 1,000 ML IV SCH (09:10)
[2025-02-13] MEDS ORDERED: FentaNYL Citrate 50 MCG/ML 2 ML Injection IV ONE (09:10)
[2025-02-13 09:49] LABS: Alanine Aminotransfer (ALT/SGP 33.0 U/L (12-78); Albumin, Blood 3.3 g/dL (3.4-5.0); Albumin/Globulin Ratio 0.9 (0.8-1.8); Anion Gap 8.0 mmol/L (3-11); Aspartate Aminotrans (AST/SGOT 35.0 U/L (12-37); Beta HCG, Quantitative, Serum 963.0 mIU/mL (0-3); Bilirubin, Total 0.2 mg/dL (0.1-1.0); Blood Urea Nitrogen 14.0 mg/dL (8-24); CO2, Blood 19.0 mmol/L (21-32); Calcium, Blood 8.4 mg/dL (8.5-10.1); Chloride, Blood 114.0 mmol/L (98-108); Creatinine, Blood 0.63 mg/dL (0.40-1.00); Globulin, Blood 3.6 g/dL (2.2-4.0); Glucose, Blood 113.0 mg/dL (70-99); Potassium, Blood 4.2 mmol/L (3.5-5.5); Sodium, Blood 137.0 mmol/L (136-145); Total Protein, Blood 6.9 g/dL (6.4-8.2)
[2025-02-13 09:59] LABS: BASOPHILS ABSOLUTE AUTO 0.04 K/mm3 (0.00-0.23); BASOPHILS PERCENT AUTO 0 % (0-2); EOSINOPHILS ABSOLUTE AUTO 0.29 K/mm3 (0.00-0.68); EOSINOPHILS PERCENT AUTO 2 % (0-6); Hematocrit 33.9 % (33.0-51.0); Hemoglobin 10.7 g/dL (11.5-16.0); IMMATURE GRAN ABSOLUTE AUTO 0.05 K/mm3 (0.00-0.10); IMMATURE GRAN PERCENT AUTO 0 % (0-1); LYMPHOCYTES ABSOLUTE AUTO 1.48 K/mm3 (0.84-5.20); LYMPHOCYTES PERCENT AUTO 10 % (21-46); MONOCYTES ABSOLUTE AUTO 1.07 K/mm3 (0.16-1.47); MONOCYTES PERCENT AUTO 7 % (4-13); Mean Corpuscular HGB Conc 31.6 g/dL (31.5-36.5); Mean Corpuscular Volume 84 fL (80-100); NEUTROPHILS ABSOLUTE AUTO 11.80 K/mm3 (1.96-9.15); NEUTROPHILS PERCENT AUTO 80 % (41-73); NRBC ABSOLUTE 0.00 K/mm3 (0.00-0.02); NRBC Auto 0.0 /100 WBC (0.0-0.2); Platelet Count 360 K/mm3 (150-400); RDW Coefficient Variation 13.9 % (11.7-14.2); RDW Standard Deviation 42.5 fL (35.1-46.3)
[2025-02-13] MEDS ORDERED: FentaNYL Citrate 50 MCG/ML 2 ML Injection IM ONE ×2 (10:00→11:35)
[2025-02-13] MEDS ORDERED: Ketorolac Tromethamine 30mg Vial IM ONE (10:00)
[2025-02-13 11:30] VITALS: BP 99/55
== END 2025-02-13 11:53 | disposition home or self-care (01) ==
LOC: ER 08:42
PROVIDERS: Physician Assistant
DX: O03.9 Complete or unspecified spontaneous abortion without complication (principal); Z59.89 Other problems related to housing and economic circumstances; Z3A.10 10 weeks gestation of pregnancy; J45.909 Unspecified asthma, uncomplicated
CPT/HCPCS: 76801; 80053; 84702; 85025; 96374; 96375; 96376; 99284-25; J1885; J3010